=== PATIENT | female | born 1990 | race African-American/Black ===

== ENCOUNTER 2018-06-26 15:23 | Outpatient (CLI) | payer OTHER ==
--- NOTE | 2018-06-26 19:09 | MRI ---
BRAIN AND ORBITAL MRI WITH AND WITHOUT CONTRAST 06/26/18 HISTORY: Blurred vision x2 months. Eye exam today revealed optic nerve head edema, worse on the left than the right. Patient has a transdermal piercing on the left cheek. COMPARISON: None. TECHNIQUE: Brain and orbit MRI performed with and without intravenous gadolinium administration. Multisequential , multiplanar imaging is performed. FINDINGS: The calvarium has a normal T1 marrow signal intensity. The midline brain parenchymal structures are u nremarkable. No parenchymal mass, mass effect, or midline shift. Brain volume is age appropriate. Cor tical fuentes-white matter differentiation is preserved. Ventricles and sulci are patent and symmetric. No significant T2 or FLAIR white matter hyperintensities. Central arterial flow voids are maintained. Absent restricted diffusion. Adequate aeration of the sin uses and mastoid air cells. No pathologic enhancement of the brain parenchyma. Note is made of a partially empty sella which is atypical for a patient of this age. There is symmetric signal intensity of the orbits. Specifically, both globes have appropriate signal intensity. Ocular lenses are appropriately located. Symmetric signal intensity of the optic nerves an d ocular rectus muscles. No abnormal enhancement in the extraconal or intraconal fat. Postcontrast im ages do not demonstrate any abnormal enhancement of the intra-orbital, intercanalicular or prechiasma tic optic nerves. Optic chiasm is unremarkable. Though there is a partially empty sella, the visualiz ed pituitary gland and pituitary stalk are unremarkable. IMPRESSION: Partially empty sella which is atypical for a patient of this age. Correlate for intracranial hyperte nsion. POS: [facility]
== END 2018-06-26 15:24 | disposition home or self-care (01) ==
LOC: MRI 15:23
DX: H47.10 Unspecified papilledema (principal); E23.6 Other disorders of pituitary gland
CPT/HCPCS: 70553